=== PATIENT | female | born 1940 | race Caucasian/White ===

== ENCOUNTER → 2017-10-20 11:00 | Outpatient (CLI) | payer OTHER, SELFPAY ==
--- NOTE | 2017-10-20 | DI.MG.S_ITS ---
BILATERAL DIGITAL SCREENING MAMMOGRAM 3D/2D WITH CAD: 10/20/2017 CLINICAL: Routine screening. Comparison is made to exams dated: 10/01/2016 mammogram, 09/25/2015 mammogram, and 09/19/2014 mammogram - [facility]. The tissue of both breasts is heterogeneously dense. This may lower the sensitivity of mammography. Current study was also evaluated with a Computer Aided Detection (CAD) system. No significant masses, calcifications, or other findings are seen in either breast. There has been no significant interval change. IMPRESSION: NEGATIVE There is no mammographic evidence of malignancy. A 1 year screening mammogram is recommended. This exam was interpreted at Station ID: [id number]. NOTE: For mammograms, a report in lay terms will be sent to the patient. Approximately 15% of breast malignancies will not be visualized mammographically. In the management of a palpable breast mass, a negative mammogram must not discourage biopsy of a clinically suspicious lesion. Electronically Signed By: Darrisu black/marcus:10/20/2017 14:57:10 letter sent: Normal Exam ACR BI-RADS Category 1: Negative 3341F
== END ==
PROVIDERS: PCP Family Medicine; Visit Provider Family Medicine
DX: Z12.31 Encounter for screening mammogram for malignant neoplasm of breast (principal)
CPT/HCPCS: 77063; 77067

== ENCOUNTER 2018-01-06 09:45 | Day surgery (SDC) | payer OTHER, SELFPAY ==
[2018-01-06] MEDS: PROPARACAINE 0.5% OPHTH SOL 2 DROPS EYE-OP (10:10)
[2018-01-06] MEDS: CATARACT EYE COMPOUND (10 DROPS/SYRINGE) 3 DROPS EYE-OP (10:14)
[2018-01-06 10:23] VITALS: BP 133/86; PULSE 82; RESP 16; TEMP 36.1; O2SAT 98; BMI 29.1
--- NOTE | 2018-01-06 10:56 | P.OP_ITS ---
Operative Date/Time/Diagnoses Pre-op diagnosis: Cataract Left eye Post-op diagnosis: same Procedure & Clinicians Surgeon: Gary Wolfe Anesthesia Type: MAC +/- and Sedation Operative Notes Procedure in detail: Patient brought to the operating suite. Tetracaine drops placed in the left eye. Patient was prepped and draped in sterile manner. Wire lid speculum was placed in the eye. Betadine drops were placed on the eye. This was irrigated. Lidocaine jelly was placed on the eye. A paracentesis port was created with a side-port blade. 0.1 mL 1% preservative free lidocaine was injected into the anterior chamber. The anterior chamber was deepened with viscoelastic. 2.6 mm keratome was used to create a temporal clear corneal incision. Cystotome and Utrata forceps were used to create continuous tear capsulorrhexis. Balanced salt solution was used to hydro dissect the nucleus. The phacoemulsification handpiece was inserted and the nucleus was removed using the stop and chop technique. The irrigation aspiration handpiece was inserted and the remaining cortex was removed. Anterior chamber was deepened with viscoelastic. An Ornelas ZCB00 intraocular lens with a power of 18.5 was injected into the capsular bag. Irrigation aspiration handpiece was inserted and the remaining viscoelastic was removed. Incision was hydrated with balanced salt solution and found to be leak free with pressure with Weck- Charlotte sponges. 0.1 mL Vigamox injected anterior chamber. 0.3 mL Kenalog 10 mg was injected subconjunctivally. Lid speculum was removed. The patient left the operating room in excellent condition. Complications: none Condition: stable Disposition: same day surgery
--- NOTE | 2018-01-06 10:56 | P.OP.PRE_ITS ---
Pre-operative Note Interval Note Changes: No
--- NOTE | 2018-01-06 10:56 | PM.PREOP ---
Pre-operative Note Interval Note Changes: No
[2018-01-06] MEDS: MOXIFLOXACIN OPHTH DROPS 3 ML BOTTLE 2 DROPS INJ (11:00)
[2018-01-06] MEDS: TRIAMCINOLONE 50 MG/5 ML VIAL INJ (11:01)
[2018-01-06] MEDS: PHENYLEPHRINE/LIDOCAINE 3ML VIAL (OR) EYE-OP (11:02)
[2018-01-06] MEDS: LIDOCAINE JELLY 2% 5 ML 1 APPLIC TOP (11:02)
[2018-01-06] MEDS: BALANCED SALT IRRIG SOLN NO.2 500 ML, EPINEPHrine 1 MG IRR (11:03)
[2018-01-06] MEDS: TETRACAINE 0.5% OPHTH DROPS 15 ML 2 DROPS EYE-LEFT (11:03)
[2018-01-06] MEDS: CHONDROIDTIN/SOD HYALURONATE 1.05 ML SYRINGE INTRAOCULA (11:03)
[2018-01-06 11:20] VITALS: BP 113/75; PULSE 88; RESP 16; TEMP 36.4; O2SAT 99
== END 2018-01-06 11:20 | disposition home or self-care (01) ==
PROVIDERS: PCP Family Medicine; Visit Provider Ophthalmology
DX: H25.12 Age-related nuclear cataract, left eye (principal); I10 Essential (primary) hypertension
CPT/HCPCS: J0171; J3301

== ENCOUNTER 2018-01-20 06:45 | Day surgery (SDC) | payer OTHER, SELFPAY ==
[2018-01-20] MEDS: PROPARACAINE 0.5% OPHTH SOL 2 DROPS EYE-OP (07:05)
[2018-01-20 07:09] VITALS: BP 131/78; PULSE 81; RESP 18; TEMP 36.4; O2SAT 99; BMI 29.1
[2018-01-20] MEDS: CATARACT EYE COMPOUND (10 DROPS/SYRINGE) 3 DROPS EYE-OP (07:15)
--- NOTE | 2018-01-20 08:25 | P.OP.PRE_ITS ---
Pre-operative Note Interval Note Changes: No
--- NOTE | 2018-01-20 08:25 | P.OP_ITS ---
Operative Date/Time/Diagnoses Pre-op diagnosis: Cataract Right eye Post-op diagnosis: same Procedure & Clinicians Procedure: Cataract Surgery Same procedure as scheduled: Yes Surgeon: Gary Wolfe Anesthesia Type: MAC +/- and Sedation Operative Notes Procedure in detail: Patient brought to the operating suite. Tetracaine drops placed in the right eye. Patient was prepped and draped in sterile manner. Wire lid speculum was placed in the eye. Betadine drops were placed on the eye. This was irrigated. Lidocaine jelly was placed on the eye. A paracentesis port was created with a side-port blade. 0.1 mL 1% preservative free lidocaine was injected into the anterior chamber. The anterior chamber was deepened with viscoelastic. 2.6 mm keratome was used to create a temporal clear corneal incision. Cystotome and Utrata forceps were used to create continuous tear capsulorrhexis. Balanced salt solution was used to hydro dissect the nucleus. The phacoemulsification handpiece was inserted and the nucleus was removed using the stop and chop technique. The irrigation aspiration handpiece was inserted and the remaining cortex was removed. Anterior chamber was deepened with viscoelastic. An Ornelas ZCB00 intraocular lens with a power of 19.0 was injected into the capsular bag. Irrigation aspiration handpiece was inserted and the remaining viscoelastic was removed. Incision was hydrated with balanced salt solution and found to be leak free with pressure with Weck- Charlotte sponges. 0.1 mL Vigamox injected anterior chamber. 0.3 mL Kenalog 10 mg was injected subconjunctivally. Lid speculum was removed. The patient left the operating room in excellent condition. Complications: none Condition: stable Disposition: same day surgery
--- NOTE | 2018-01-20 08:25 | PM.PREOP ---
Pre-operative Note Interval Note Changes: No
[2018-01-20] MEDS: CHONDROIDTIN/SOD HYALURONATE 1.05 ML SYRINGE INTRAOCULA (08:30)
[2018-01-20] MEDS: LIDOCAINE JELLY 2% 5 ML 1 APPLIC TOP (08:31)
[2018-01-20] MEDS: MOXIFLOXACIN OPHTH DROPS 3 ML BOTTLE 2 DROPS INJ (08:32)
[2018-01-20] MEDS: PHENYLEPHRINE/LIDOCAINE 3ML VIAL (OR) EYE-OP (08:32)
[2018-01-20] MEDS: TETRACAINE 0.5% OPHTH DROPS 15 ML 2 DROPS EYE-RIGHT (08:32)
[2018-01-20] MEDS: TRIAMCINOLONE 50 MG/5 ML VIAL INJ (08:33)
[2018-01-20] MEDS: BALANCED SALT IRRIG SOLN NO.2 500 ML, EPINEPHrine 1 MG IRR (08:34)
--- NOTE | 2018-01-20 08:46 | SUR.OPER ---
Supine on eye stretcher, head on extension cradle secured with tape. Arms tucked at sides with blanket. Pillow under knees.
[2018-01-20 08:57] VITALS: BP 103/71; PULSE 80; RESP 16; TEMP 36; O2SAT 96
== END 2018-01-20 09:05 ==
LOC: OR 06:46
PROVIDERS: PCP Family Medicine; Visit Provider Ophthalmology
DX: H25.11 Age-related nuclear cataract, right eye (principal); I10 Essential (primary) hypertension
CPT/HCPCS: J0171; J2250; J3010; J3301

== ENCOUNTER 2018-03-31 17:13 | Emergency (ER) | payer OTHER, SELFPAY ==
[2018-03-31 17:36] VITALS: BP 157/96; PULSE 88; RESP 18; TEMP 36.5; O2SAT 97
--- NOTE | 2018-03-31 17:40 | DI.RAD.S_ITS ---
PROCEDURE: XR HAND LT MIN 3V INDICATIONS: crush injury TECHNIQUE: 3 views of the hand(s) acquired. COMPARISON: None. FINDINGS: Bones: No fractures or dislocations. Carpal bones are normally aligned. No suspicious bony lesions. Soft tissues: Soft tissue swelling and emphysema is present over the dorsum of the hand. IMPRESSION: No acute fracture or dislocation. Soft tissue swelling and emphysema as above. If pain persists, repeat imaging at 5-7 days is recommended to exclude occult fracture. Dictated by: Abby Flores M.D. on 03/31/2018 at 18:03 Approved by: Abby Flores M.D. on 03/31/2018 at 18:04
[2018-03-31 20:11] VITALS: BP 170/93; PULSE 84; RESP 18; O2SAT 97
[2018-03-31] MEDS: TET,DIPH,PERTUSS(ACELL),VAC/PF 0.5 ML SYRINGE IM (20:33)
[2018-03-31 21:30] VITALS: BP 156/77; PULSE 58; RESP 20; O2SAT 99
[2018-03-31 22:28] VITALS: BP 147/91; PULSE 73; RESP 14; O2SAT 100
--- NOTE | 2018-03-31 22:43 | ED_ITS ---
HPI - Extremity Injury (Upper) General Chief Complaint: Extremity Injury, Upper Stated Complaint: SMASHED LEFT HAND BETWEEN TRAILER AND A WALL Time Seen by Provider: 03/31/18 20:21 Source: patient Mode of arrival: ambulatory Limitations: no limitations History of Present Illness HPI narrative: patient is a 77-year-old female who presents with a left hand injury. She put her hand between a hitch and a wall it got crushed. She has no numbness or tingling in her fingers. She has a laceration over her MCPs on the dorsal side. She is able to flex extend move all of her fingers and wrist. She is left-hand dominant. MD complaint: injury to: left Related Data Home Medications Medication Instructions Recorded Confirmed vitamin E 1,000 unit PO DAILY #0 01/18/16 01/20/18 acyclovir [Zovirax] 5 tube TOPICAL Q6HP PRN 01/06/18 01/20/18 clobetasol 0.05 % TOPICAL QDAY PRN 01/06/18 01/20/18 triamcinolone acetonide 1 ea TOPICAL BID PRN 01/06/18 01/20/18 aspirin [Aspirin Low Dose] 81 mg PO DAILY 01/20/18 01/20/18 Previous Rx's Medication Instructions Recorded atorvastatin [Lipitor] 10 mg PO HS #90 tab 04/25/17 levothyroxine 100 mcg PO QAM #90 tab 04/25/17 lisinopril 10 mg PO QDAY #90 tab 04/25/17 alprazolam 0.25 mg tablet 0 mg PO Q12HP #6 tab 10/30/17 Allergies Allergy/AdvReac Type Severity Reaction Status Date / Time Sulfa (Sulfonamide Allergy Mild Verified 01/20/18 07:28 Antibiotics) [SULFA (SULFONAMIDE ANTIBIOTICS)] Review of Systems Review of Systems GENERAL: Denies chills,fever HEENT: Denies throat pain RESPIRATORY: Denies dyspnea, cough, wheezing CARDIOVASCULAR: Denies chest pain, palpitations GASTROINTESTINAL: Denies nausea, vomiting MUSCULOSKELETAL: Denies extremity pain, injury SKIN: Laceration NEUROLOGIC: Denies weakness, dizziness, headache, numbness 8 point review of systems is negative except for those stated above and HPI PFSH Surgical History History of carpal tunnel repair History of carpal tunnel repair Status post appendectomy Status post arthroscopy Status post cholecystectomy Status post colonoscopy Status post hernia repair Status post hysterectomy Family History Father Bladder cancer Stroke Sister Age: 65 Diabetes mellitus Social History household members: spouse Comment: Left hand dominant Exam Initial Vital Signs Initial Vital Signs: Vital Signs Temperature 97.7 F 03/31/18 17:36 Pulse Rate 88 03/31/18 17:36 Respiratory Rate 18 03/31/18 17:36 Blood Pressure 157/96 H 03/31/18 17:36 Pulse Oximetry 97 03/31/18 17:36 GENERAL: Well-appearing, well-nourished and in no acute distress. CARDIOVASCULAR: peripheral pulses in tact, cap refill <2 sec RESPIRATORY: No respiratory distress, speaks in full sentences without difficulty EXTREMITIES: Normal range of motion, no clubbing or edema. Neurovascularly intact left hand: no gross bony deformities, able flex extend all fingers good abduction and adduction. Wrist is good flexion extension neurovascularly intact NEUROLOGICAL: Cranial nerves II through XII grossly intact. Normal gait and speech. SKIN: 6 cm laceration over the dorsal MCP, neurovascularly intact Skin Hand Left Back: 2 1. 6 cm tendons intact neurovascularly intact. Large hematoma Procedures Laceration Repair Laceration 1: Site: hand Side (If applicable): left Size (cm): 6 Description: linear Depth: simple, single layer Local Anesthetic: lidocaine 1% Amount of anesthesia used (mL): 4 Pre-repair: wound explored, irrigated extensively and deep structures intact Skin layer closed with: nylon Size (cm): 4-0 Number of sutures: 6 Technique: simple, interrupted Course Orders Ordered: Discontinued Medications Diphtheria/Tetanus/Acell Pertussis (Adacel) 0.5 ml IM .ONCE ONE Stop: 03/31/18 20:07 Last Admin: 03/31/18 20:33 Dose: 0.5 ml Vital Signs - 8 hr 03/31/18 21:30 03/31/18 22:28 Pulse Rate 58 L 73 Respiratory Rate 20 14 Blood Pressure [Right Arm] 156/77 H 147/91 H Pulse Oximetry 99 100 MDM - Extremity Injury (Upper) Imaging Data hand: Radiologist's impression: [address] [address] XRay Report Signed Patient: Veronica Blevins MR#: [id number] : 1940 Acct:[id number] Age/Sex: 77 / F Date of Service: 03/31/18 Loc: ED Accession Number: [id number] Procedure: XR hand LT min 3V Ordering Provider: Lai Lo D.O. PROCEDURE: XR HAND LT MIN 3V INDICATIONS: crush injury TECHNIQUE: 3 views of the hand(s) acquired. COMPARISON: None. FINDINGS: Bones: No fractures or dislocations. Carpal bones are normally aligned. No suspicious bony lesions. Soft tissues: Soft tissue swelling and emphysema is present over the dorsum of the hand. IMPRESSION: No acute fracture or dislocation. Soft tissue swelling and emphysema as above. If pain persists, repeat imaging at 5-7 days is recommended to exclude occult fracture. Dictated by: Abby Flores M.D. on 03/31/2018 at 18:03 Discharge Plan Departure Patient Disposition: Home Clinical Impression: Laceration of hand, left Discharge Date/Time: 03/31/18 22:51 Interventions: ED Discharge Assessment Last Done: 03/31/18 22:51 Instructions: DI for Laceration Repair Activity Restrictions/Additional Instructions: 1. Have your suture removed in 5-7 days, you may go to walk-in clinic, return to the ER or call your primary care physician. 2. No soaking in water including dishes, bathtubs, Lakes, swimming pools etc 3. Signs of infection include, but not limited to, increased redness, increased swelling, increased pain, fever and purulent drainage, if the symptoms should arise, you may need an antibiotic and you should have a reevaluation either by your primary care provider or by the emergency department. Prescriptions: No Action vitamin E 1,000 UNIT capsule 1,000 unit PO DAILY Qty: 0 RF: 0 lisinopril 10 MG tablet 10 mg PO QDAY Qty: 90 RF: 3 atorvastatin [Lipitor] 10 MG tablet 10 mg PO HS Qty: 90 RF: 3 levothyroxine 100 MCG tablet 100 mcg PO QAM Qty: 90 RF: 3 alprazolam 0.25 mg tablet PO Q12HP Qty: 6 RF: 1 triamcinolone acetonide 0.1 % cream 1 ea Topical BID PRN (Reason: Rash) RF: 0 clobetasol 0.05 % solution 0.05 % Topical QDAY PRN (Reason: Itching) RF: 0 acyclovir [Zovirax] 5 GM cream 5 tube Topical Q6HP PRN (Reason: Rash) RF: 0 aspirin [Aspirin Low Dose] 81 mg Tablet,Delayed Release (Dr/Ec) 81 mg PO DAILY RF: 0 Referrals: Pedro Billingsley MD [Primary Care Provider] -
== END 2018-03-31 22:51 | disposition home or self-care (01) ==
PROVIDERS: Emergency Provider Emergency Medicine; PCP Family Medicine
DX: S61.412A Laceration without foreign body of left hand, initial encounter (principal); W23.0XXA Caught, crushed, jammed, or pinched between moving objects, initial encounter
CPT/HCPCS: 12002; 73130; 90471; 99283; 90715

== ENCOUNTER → 2018-04-14 07:48 | Outpatient (CLI) | payer OTHER, SELFPAY ==
[2018-04-14 08:42] LABS: Add Manual Diff / Slide Review NO; Basophils Percent Auto 0.8 % (0-2); Eosinophils Percent Auto 4.8 % (2-4); Hematocrit 44.5 % (36-46); Hemoglobin 15.2 g/dL (12.0-16.0); Lymphocytes Percent Auto 26.7 % (25-40); Mean Corpuscular HGB Conc 34.3 % (30-36); Mean Corpuscular Hemoglobin 32.1 PG (26-34); Mean Corpuscular Volume 93.7 fL (80-100); Monocytes Percent Auto 9.6 % (3-14); Neutrophils Absolute Auto 3600 /uL (3000-5900); Neutrophils Percent Auto 58.1 % (50-75); Platelet Count 205 X10^3/uL (150-400); Red Blood Cell Count 4.75 X10^6/uL (4.0-5.2); Red Cell Distribution Width 12.2 % (11.6-14.8); White Blood Cell Count 6.2 X10^3/uL (4.5-11.0)
[2018-04-14 09:06] LABS: Alanine Aminotransferase 43 IU/L (9-52); Albumin 4.2 g/dL (3.5-5.0); Albumin Globulin Ratio 1.4 (1.0-2.8); Alkaline Phosphatase 77 U/L (38-126); Aspartate Aminotransferase 37 IU/L (14-36); BUN Creatinine Ratio 21.4 (6-22); Bilirubin Total 1.5 mg/dL (0.2-1.3); Blood Urea Nitrogen 15 mg/dL (7-17); Carbon Dioxide 28 mmol/L (22-32); Chloride 104 mmol/L (98-107); Cholesterol 146 mg/dL (140-199); Estimated Glomerular Filt Rate > 60.0 mL/min (>60); Globulin 3.1 g/dL (1.7-4.1); Glucose 133 mg/dL (80-110); HDL Cholesterol 61 mg/dL (40-60); HEMOLYSIS < 15 (0-50); LDL Cholesterol Calculated 61 mg/dL (<100); Sodium 142 mmol/L (137-145); Total Protein 7.3 g/dL (6.3-8.2); Triglycerides 118 mg/dL (35-150)
[2018-04-14 09:38] LABS: Thyroid Stimulating Hormone 4.43 uIU/mL (0.47-4.68)
== END ==
PROVIDERS: PCP Family Medicine; Visit Provider Family Medicine
DX: E03.9 Hypothyroidism, unspecified (principal); E78.2 Mixed hyperlipidemia
CPT/HCPCS: 36415; 80053; 80061; 84443; 85025

== ENCOUNTER 2018-06-04 12:22 | Day surgery (SDC) | payer OTHER, SELFPAY ==
[2018-06-04] VITALS (7 sets, daily range): BP systolic 109–134; BP diastolic 62–85; PULSE 82–102; RESP 14–20; TEMP 36.2–36.8; O2SAT 96–97; BMI 28.1
--- NOTE | 2018-06-04 | PATH_ITS ---
[facility] Accession Number: [id number] . 01 Material submitted: . PART A: CECAL POLYP PART B: SIGMOID COLON AT 15CM . 02 Diagnosis: A. Cecal Polyp: Tubulovillous adenoma, fragmented. Negative for high-grade dysplasia or malignancy. . B. Sigmoid Colon at 15 cm: Tubular adenoma x1. Hyperplastic polyp x1. MRV/06/08/2018 . 02 Comment: As part of routine personnel quality assurance auditor, Dr. Jackson has reviewed this case and agrees with the above diagnoses. . 02 Electronically signed: . Anupam Jose MD, PhD, Pathologist NPI- [id number] . 01 Gross description: . Received two formalin-filled containers, both labeled with the patient's name: . A. In a container labeled cecal polyp, the specimen consists of three 0.1-0.3 cm portions of tissue, entirely submitted in cassette A. B. In a container labeled sigmoid polyp at 15 cm, the specimen consists of two 0.3-0.4 cm portions of tissue, entirely submitted in cassette B. ([id number]) /FRR . 02 Pathologist provided ICD-10: D12.0, D12.5 . 02 CPT . 158364, 274070 Performed at: 01 [facility] Located within [facility] [address], [place], [place] [id number] MD Darrius Alicea MD Phone: [phone] Performed at: [address] [facility] [address] [place], [place] [id number] MD Netta Jackson MD Phone: [phone]
[2018-06-04] MEDS: SODIUM CHLORIDE 0.9% 1,000 ML 21 ML IV (13:06)
[2018-06-04] MEDS: MIDAZOLAM 5 MG/5 ML VIAL IV (13:17)
[2018-06-04] MEDS: fentaNYL 250 MCG/5 ML INJ IV (13:18)
--- NOTE | 2018-06-04 13:25 | P.HP_ITS ---
History of Present Illness Date Patient Seen: 06/04/18 Time Patient Seen: 13:23 Chief complaint: [id number] Narrative: 77-year-old female with personal history of colon polyps. Last colonoscopy was 5 years ago. She presents now for surveillance. On further history today she denies any nausea, vomiting, loss of appetite, abdominal pain , unexplained weight loss, change in bowel habits, diarrhea, constipation, melena, hematochezia, or bright red blood per rectum. Patient History Medical History Acne (Chronic) Hearing loss (Chronic) Psoriasis (Chronic) Tinnitus (Chronic) Vertigo (Chronic) Basal cell carcinoma (BCC) of right side of neck (Resolved 06/22/14) CTS (carpal tunnel syndrome) (Resolved) Chicken pox (Resolved) Colon polyps (Resolved 2011) Endometriosis (Resolved) History of heavy periods (Resolved) Kidney stones (Resolved) Measles (Resolved) Mumps (Resolved) Surgical History Anesthesia (Resolved) History of basal cell carcinoma (BCC) excision (Resolved 06/22/14) History of biopsy (Resolved 1972) History of carpal tunnel repair (Resolved 2008) History of carpal tunnel repair (Resolved 10/07/12) History of colonoscopy with polypectomy (Resolved 02/17/12) History of colonoscopy with polypectomy (Resolved 08/10/12) History of colonoscopy with polypectomy (Resolved 02/27/15) History of left cataract surgery (Resolved 01/06/18) History of right cataract surgery (Resolved 01/20/18) History of tonsillectomy and adenoidectomy (Resolved 1955) Status post Mohs micrographic surgery for basal cell carcinoma (BCC) (Resolved 07/05/14) Status post appendectomy (Resolved) Status post arthroscopy (Resolved 06/29/08) Status post cholecystectomy (Resolved) Status post hernia repair (Resolved 04/16/05) Status post hysterectomy (Resolved 1972) Family & Social History Social History: household members spouse Meds Home Medications Medication Instructions Recorded Confirmed Type lisinopril 10 mg PO QDAY #90 tab 04/25/17 06/04/18 Rx acyclovir [Zovirax] 5 tube TOPICAL Q6HP PRN 01/06/18 06/04/18 History clobetasol 0.05 % TOPICAL QDAY PRN 01/06/18 06/04/18 History triamcinolone acetonide 1 ea TOPICAL BID PRN 01/06/18 06/04/18 History aspirin [Aspirin Low Dose] 81 mg PO DAILY 01/20/18 06/04/18 History atorvastatin [Lipitor] 10 mg PO HS #90 tab 04/08/18 06/04/18 Rx levothyroxine 100 mcg PO QAM #90 tab 05/20/18 06/04/18 Rx alprazolam 0.25 mg PO Q12HP 06/04/18 06/04/18 History omega 3-eve-kgp-fish oil [Fish Oil] 1,000 mg PO DAILY 06/04/18 06/04/18 History Allergies Allergy/AdvReac Type Severity Reaction Status Date / Time Sulfa (Sulfonamide Allergy Mild childhood Verified 06/04/18 12:41 Antibiotics) rxn [SULFA (SULFONAMIDE ANTIBIOTICS)] Review of Systems Review of Systems All systems reviewed & are unremarkable except as noted in HPI and below Exam Vital Signs (past 8 hours): - 06/04/18 13:05 Temperature 98.2 F Pulse Rate 102 H Respiratory Rate 20 Blood Pressure 134/85 Pulse Oximetry 96 Oxygen Delivery Method Room Air Narrative Exam Narrative: Well-nourished well-developed female in no acute distress. Alert oriented x3. is at the bedside from my visit Sclera nonicteric Regular rate rhythm Abdomen soft, nondistended, nontender Extremities show no clubbing or cyanosis Objective Labs Labs: No recent laboratory or radiographic studies for review Assessment & Plan Plan: Assessment/Plan Narrative: 77-year-old female with personal history of colon polyps. Last colonoscopy was 5 years ago. She require surveillance for such. Colonoscopy is once again recommended. Technical details of the procedure were explained. Risks, benefits, alternatives were discussed. Risks including but not limited to sedation, aspiration, bleeding, pain, missed lesion, incomplete examination, need for further radiographic studies, colonic perforation, need for major abdominal surgery, and all attendant risks of major surgery were explained at length. All questions were answered to her satisfaction, and she voiced understanding. Consent was placed on the chart. We will proceed as above.
--- NOTE | 2018-06-04 13:25 | PM.PREOP ---
Pre-operative Note Interval Note History & Physical reviewed/Exam performed by Physician: Yes Changes to H&P: No H&P completed within 30 days and has changed as indicated here:: Patient seen and examined today. History and physical examination placed on the chart today. Obviously no changes. Proceed with colonoscopy today as planned. ASA Class (for procedural sedation): II
--- NOTE | 2018-06-04 13:55 | PM.OP.ENDO ---
Operative Date/Time/Diagnoses Date of procedure: 06/04/18 Time of procedure: 13:55 Pre-op diagnosis: Personal history of colon polyps Post-op diagnosis: other (Diverticulosis and colon polyps) Procedure & Clinicians Study performed: 1. Sedation per surgeon 2. Colonoscopy with cold forceps polypectomies Same procedure as scheduled: Yes Indications: 77-year-old female with personal history of colon polyps. Last colonoscopy was 5 years ago. She requires colorectal surveillance for such. Colonoscopy is once again recommended. Surgeon: Sunny Garland Procedure Notes SCOAP/Timeout: Yes Procedure in detail: After obtaining informed consent, the patient was brought to the GI suite and placed in the left lateral decubitus position on the examination table. After placement of appropriate monitors, the patient was given incremental doses of Versed and Fentanyl until an appropriate level of sedation was achieved. A time out was held per SCOAP protocol. A digital rectal examination was performed and did not reveal any masses or obstructing lesions. The colonoscope was gently passed into the patient's anus and the entire colon navigated to the level of the cecum with some difficulty due to her extensive tortuosity and massive diverticulosis. Monse ink tattoo was noted in the cecum and a small polyp was adjacent to the area. Once in the cecum, the scope was withdrawn being sure to go before and beyond all mucosal folds and prominences and get an excellent examination. The findings are noted above. At the level of the rectal vault, the scope was retroflexed and the internal anal canal was examined. The scope was straightened and air aspirated from the colon. The instrument was removed from the patient's body and the procedure was concluded. The patient was allowed to awaken from sedation without difficulty and taken to the post-anesthesia care unit in good condition. Scope withdrawal time: 8:36 min Sedation minutes: 26 Findings: diverticulosis and polyp Specimen(s): other (1. Cecal polyp 2. Sigmoid polyp at 15 cm) Complications: none Recommendations: High fiber diet, Will call with biopsy results and Other recommendation (No further colonoscopy pending biopsy results.) Plan for aftercare: 1. Discharge home Follow up: as needed Disposition: PACU
== END 2018-06-04 14:51 | disposition home or self-care (01) ==
PROVIDERS: PCP Family Medicine; Visit Provider Surgery
PROC: 0DJD8ZZ Inspection of Lower Intestinal Tract, Via Natural or Artificial Opening Endoscopic (ICD-10-PCS; CPT 45378; principal; 2018-06-04 14:00)
DX: Z86.010 Personal history of colon polyps (principal); K57.30 Diverticulosis of large intestine without perforation or abscess without bleeding; D12.0 Benign neoplasm of cecum; D12.5 Benign neoplasm of sigmoid colon
CPT/HCPCS: 45380; 99152; 99153; J2250; J3010

== ENCOUNTER → 2018-10-28 15:21 | Outpatient (CLI) | payer OTHER, SELFPAY ==
--- NOTE | 2018-10-28 | DI.MG.S_ITS ---
BILATERAL DIGITAL SCREENING MAMMOGRAM 3D/2D WITH CAD: 10/28/2018 CLINICAL: Routine screening. Comparison is made to exams dated: 10/20/2017 mammogram, 10/01/2016 mammogram, and 09/25/2015 mammogram - [facility]. There are scattered fibroglandular elements in both breasts. Current study was also evaluated with a Computer Aided Detection (CAD) system. No significant masses, calcifications, or other findings are seen in either breast. There has been no significant interval change. IMPRESSION: NEGATIVE There is no mammographic evidence of malignancy. A 1 year screening mammogram is recommended. This exam was interpreted at Station ID: [id number]. NOTE: For mammograms, a report in lay terms will be sent to the patient. Approximately 15% of breast malignancies will not be visualized mammographically. In the management of a palpable breast mass, a negative mammogram must not discourage biopsy of a clinically suspicious lesion. Electronically Signed By: Sourav mars/marcus:10/29/2018 09:38:48 letter sent: Normal Exam ACR BI-RADS Category 1: Negative 3341F
== END ==
PROVIDERS: PCP Family Medicine; Visit Provider Family Medicine
DX: Z12.31 Encounter for screening mammogram for malignant neoplasm of breast (principal)
CPT/HCPCS: 77063; 77067

== ENCOUNTER → 2018-12-28 08:20 | Outpatient (CLI) | payer OTHER, SELFPAY ==
[2018-12-28 09:40] LABS: Carbon Dioxide 29 mmol/L (22-32); Chloride 101 mmol/L (98-107); HEMOLYSIS 22 (0-50); Potassium 4.8 mmol/L (3.4-5.1); Sodium 136 mmol/L (137-145)
[2018-12-28 09:41] LABS: Add Manual Diff / Slide Review NO; Basophils Absolute Auto 0 /uL (0-100); Basophils Percent Auto 0.8 % (0-2); Eosinophils Absolute Auto 200 /uL (0-450); Eosinophils Percent Auto 2.8 % (2-4); Hematocrit 44.8 % (36-46); Hemoglobin 15.3 g/dL (12.0-16.0); Lymphocytes Absolute Auto 1500 /uL (1100-4500); Lymphocytes Percent Auto 24.2 % (25-40); Mean Corpuscular HGB Conc 34.1 % (30-36); Mean Corpuscular Hemoglobin 32.1 PG (26-34); Mean Corpuscular Volume 94.3 fL (80-100); Monocytes Absolute Auto 700 /uL (0-900); Neutrophils Absolute Auto 3800 /uL (1500-7000); Neutrophils Percent Auto 61.2 % (50-75); Platelet Count 186 X10^3/uL (150-400); Red Blood Cell Count 4.76 X10^6/uL (4.0-5.2); Red Cell Distribution Width 12.5 % (11.6-14.8); White Blood Cell Count 6.1 X10^3/uL (4.5-11.0)
== END ==
PROVIDERS: PCP Family Medicine; Visit Provider Orthopaedic Surgery
DX: Z01.818 Encounter for other preprocedural examination (principal); Z01.812 Encounter for preprocedural laboratory examination
CPT/HCPCS: 36415; 80051; 85025; 93005

== ENCOUNTER 2019-02-03 12:35 | Inpatient (IN) | payer OTHER, MEDICARE, SELFPAY ==
[2019-01-20 07:45] VITALS: BMI 29.7
[2019-02-03] VITALS (12 sets, daily range): BP systolic 90–156; BP diastolic 50–80; PULSE 71–88; RESP 14–20; TEMP 35.9–37; O2SAT 94–98; BMI 29.7
--- NOTE | 2019-02-03 06:00 | DI.RAD.S_ITS ---
PROCEDURE: XR KNEE RT 1TO2V INDICATIONS: TOTAL RIGHT KNEE TECHNIQUE: 2 view(s) of the knee acquired. COMPARISON: [facility] [place], CR, XR KNEE ARTHRITIC SERIES RT, 12/28/2018, 7:45. FINDINGS: Bones: Patient is status post interval right knee joint arthroplasty. Hardware components are in expected positions. Visualized bony structures are intact. Soft tissues: Overlying postoperative changes are noted. IMPRESSION: Status post interval right total knee arthroplasty without acute hardware complication. Expected postsurgical changes are present. Dictated by: Sourav Iverson M.D. on 02/03/2019 at 16:48 Approved by: Sourav Iverson M.D. on 02/03/2019 at 16:49
--- NOTE | 2019-02-03 12:51 | PM.PREOP ---
Pre-operative Note Interval Note History & Physical reviewed/Exam performed by Physician: Yes Changes to H&P: No
--- NOTE | 2019-02-03 12:52 | P.OP_ITS ---
Operative Date/Time/Diagnoses Date of procedure: 02/03/19 Time of procedure: 16:17 Pre-op diagnosis: Right knee osteoarthritis Post-op diagnosis: same Procedure & Clinicians Procedure: Right total knee arthroplasty Same procedure as scheduled: Yes Indications: The patient presents today for total knee arthroplasty after failure of conservative treatment. The nature of the procedure including the risks and benefits, alternatives, postoperative course and expected outcome were discussed and all questions answered. Consent was obtained. Operative site confirmed and marked. Surgeon: Darrius Olmstead [employer] Supervisor: Priyank Lea Anesthesia Type: General, Spinal and Local Operative Notes Findings: Severe osteoarthritis with valgus alignment. Closure Type: primary Specimen(s): none sent Prosthetic devices, grafts, tissues, transplants, or devices: [employer]hew Natalio BCS: 7 femoral component, 6 tibial component, 9 mm BCS polyethylene tray and 32 x 9 mm round patella Applied: implant(s) Estimated Blood Loss (mL): 10 Blood products transfused: none Tourniquet time (min): 60 Procedure in detail: The patient was taken to the operative suite and placed under general and spinal anesthesia. The patient was given prophylactic antibiotics prior to surgery. The patient was also given tranexamic acid, 1 g, just prior to surgery for postoperative hemostasis. The lateral knee was prepped and the joint injected with 20 mL of 1% Lidocaine with epinephrine. The knee was then prepped and draped in usual sterile fashion. The leg was exsanguinated with an Esmarch dressing and the tourniquet raised to 250 torr. A 15 cm anterior incision was made. Next a medial trivector arthrotomy was made. The extensor mechanism was marked to ensure accurate repair. Initial exposing dissection was carried out medially and laterally. The knee was then extended and the patellar thickness was measured and a cut made removing approximately 9 mm of bone. The patella was then sized and drilled. Some excess lateral bone was excised and the patellofemoral ligament released. The knee was then flexed and the intramedullary femoral guide polly placed. The distal femoral cut was made in 6 ? of valgus at the + 0 position. The femoral size was measured and the appropriate cutting block was then placed and the anterior, posterior and chamfer cuts made. The extra medullary tibial alignment polly was then placed along the anatomic axis of the tibia approximating the normal slope. The guide was set to remove approximately 8 mm from the less affected medial side. The proximal tibial cut was then made with an oscillating saw. All meniscus and bony debris was then removed. Flexion extension gaps were checked. The knee was tight laterally in extension as expected from her deformity. This was corrected by releasing the lateral structures using a pie crust technique with a 15 blade. The soft tissues were then injected with a combination of 20 mL of half percent Marcaine with epinephrine and 20 mL of Exparel. The trial components were then placed. The knee went into full extension and flexion beyond 120?. There was excellent medial- lateral balance throughout motion. Patellar tracking was excellent. The trial components were removed and the knee was cleansed with Pulsavac irrigation and dried. The final components were cemented in with high viscosity vacuum mixed bone cement with antibiotics. The knee was held in extension and the patellar clamp until the cement had adequately cured. The knee was irrigated and inspected for any further debris. The knee was then irrigated with dilute Betadine solution. The extensor mechanism was closed with 5 interrupted #1 Vicryl sutures in 90 degrees of flexion. The joint was then injected with a combination of 1 g of tranexamic acid and 20 mL of quarter percent Marcaine with epinephrine. The subcutaneous tissue was closed with 2-0 Vicryl. The skin was closed with dalton and surgical adhesive. An Aquacell dressing and Lance wrap were then applied. The patient tolerated the procedure well and was returned to recovery room in good condition. Post-operative Condition: stable Disposition: PACU Plan for aftercare: [facility] protocol for total knee arthroplasty.
[2019-02-03] MEDS: LACTATED RINGERS 1,000 ML 42 ML IV ×2 (13:15→15:50)
[2019-02-03] MEDS: MIDAZOLAM 2 MG/2 ML VIAL IV (14:11)
[2019-02-03] MEDS: CEFAZOLIN 2 GM/100 ML FROZ.PIGGY IV ×2 (14:25→22:10)
[2019-02-03] MEDS: LIDOCAINE 1% W/EPI 20 ML INJ (14:56)
--- NOTE | 2019-02-03 15:06 | SUR.OPER ---
Supine on padded OR bed. Pillow under head, arms secured on padded armboards <90 degree abduction. Safety belt across torso. Non-operative leg secured with tape over blanket over lower leg. Operative leg secured in dontrell boot positioner
[2019-02-03] MEDS: BUPIVACAINE 0.25% W/ EPI (PF) 20 ML, TRANEXAMIC ACID 1,000 MG, SODIUM CHLORIDE 0.9% 10 ML INJ (15:23)
[2019-02-03] MEDS: BUPIVACAINE 0.5% W/ EPI (PF) 20 ML, BUPIVACAINE LIPOSOME 266 MG, SODIUM CHLORIDE 0.9% 2... INJ (15:25)
[2019-02-03] MEDS: SODIUM CHLORIDE IRRIG SOLUTION 250 ML, POVIDONE-IODINE SPONGE STICKS 1 APPLIC IRR (15:30)
[2019-02-03] MEDS: LACTATED RINGERS 1,000 ML 125 ML IV (17:53)
[2019-02-03] MEDS: ACETAMINOPHEN 325 MG TABLET 975 MG PO (20:32)
[2019-02-03] MEDS: ASPIRIN EC 81 MG TABLET PO (20:32)
[2019-02-03] MEDS: OXYCODONE IR 5 MG TABLET 10 MG PO (22:39)
[2019-02-03] MEDS: MELATONIN 3 MG TABLET 6 MG PO (22:39)
[2019-02-04 00:20] VITALS: BP 146/81; PULSE 74; RESP 18; TEMP 36.6; O2SAT 98
--- NOTE | 2019-02-04 02:09 | PC.NURSE ---
[employer] Safety Engineer Note: 0045: Awake, vital signs stable. IV in place in rt forearm with LR infusing at 125cc/hr. SCDs on. Dressing to rt knee cdi, with rebekah wrap over dressing. Pt states her pain level is 1/10 and declines any medication at this time.
[2019-02-04] MEDS: LACTATED RINGERS 1,000 ML 125 ML IV (03:16)
[2019-02-04 04:15] VITALS: BP 129/73; PULSE 71; RESP 18; TEMP 36.7; O2SAT 96
[2019-02-04] MEDS: CEFAZOLIN 2 GM/100 ML FROZ.PIGGY IV (05:48)
[2019-02-04] MEDS: LEVOTHYROXINE 100 MCG TABLET PO (05:48)
[2019-02-04 07:04] LABS: Hematocrit 39.3 % (36-46); Hemoglobin 13.3 g/dL (12.0-16.0)
--- NOTE | 2019-02-04 08:48 | P.DS_ITS ---
History of Present Illness History of Present Illness Date Patient Seen: 02/04/19 Time Patient Seen: 08:48 Chief complaint: Total Knee Arthroplasty Narrative: Patient states she is having no pain at rest mild pain with activity. She has been up to use the restroom. Denies fever chills. No nausea vomiting. Patient has a ramp into her house. Patient's and daughter home to assist her. Discharge Providers Provider Date of admission: 02/03/19 12:35 Discharge Date: 02/04/19 Primary care physician: Pedro Billingsley MD Consults: 02/03/19 17:04 Consult to Discharge Planning Routine Comment: Consult to Physical Therapy Evaluate & Treat Comment: Physician Instructions: postop TKA protocol Consult to Respiratory Therapy Evaluate & Treat Comment: Physician Instructions: Evaluate and treat Discharge provider: Priyank Lea PA-C Summary Hospital Course Discharge Diagnosis: Status post right total knee arthroplasty secondary to right knee OA Hospital Course: Findings: Severe osteoarthritis with valgus alignment. Closure Type: primary Specimen(s): none sent Prosthetic devices, grafts, tissues, transplants, or devices: [employer]hew Natalio BCS: 7 femoral component, 6 tibial component, 9 mm BCS polyethylene tray and 32 x 9 mm round patella Applied: implant(s) Estimated Blood Loss (mL): 10 Blood products transfused: none Tourniquet time (min): 60 Patient admitted to the hospital for right total knee arthroplasty. Consented to the same. Patient taken to the operating room underwent right total knee ar throplasty. Patient back in her room recovering well as in stable condition. Patient wishes to go home if safe to do so today. Status at Discharge Cognitive/behavioral status at discharge: at baseline, oriented Functional status at discharge: uses cane/walker Overall status at discharge: patient is progressing back to baseline Time Spent with Patient Time spent: Less than 30 minutes Exam Vital Signs (past 8 hours): - 02/04/19 04:15 Temperature 98.0 F Pulse Rate 71 Respiratory Rate 18 Blood Pressure 129/73 Pulse Oximetry 96 Oxygen Delivery Method Room Air Narrative Exam Narrative: Pleasant 78-year-old female resting comfortably in bed in no apparent distress. Right knee dressing is clean, dry and intact. Sensation is intact to light touch right lower extremity. Motor functions intact right lower extremity. Right leg is warm and dry. Objective Labs Result Diagrams: 02/04/19 06:30 Labs: Laboratory Results - last 24 hr 02/04/19 06:30 Hgb 13.3 Hct 39.3 Discharge Plan Discharge Plan Patient Disposition: Home Discharge comment: DC home today after PT Discharge Med Rec/Prescriptions Prescriptions: Continued atorvastatin [Lipitor] 10 mg tablet 10 mg PO HS Qty: 90 RF: 3 levothyroxine 100 mcg tablet 100 mcg PO QAM Qty: 90 RF: 3 lisinopril 10 mg tablet 10 mg PO QDAY Qty: 90 RF: 3 clobetasol 0.05 % solution 0.05 % Topical QDAY PRN (Reason: Itching) Qty: 50 RF: 6 omega 3-dvs-vld-fish oil [Fish Oil] 1,000 mg (120 mg-180 mg) Capsule 1,000 mg PO DAILY RF: 0 melatonin 5 mg Capsule 5 mg PO BEDTIME PRN (Reason: Sleep) RF: 0 triamcinolone acetonide 0.1 % cream 1 ea Topical BID PRN (Reason: Rash) RF: 0 Discontinued ibuprofen 200 mg Tablet 200 mg PO DAILY PRN (Reason: Pain) RF: 0 aspirin [Aspirin Low Dose] 81 mg Tablet,Delayed Release (Dr/Ec) 81 mg PO DAILY RF: 0 Follow up/Referrals: Pedro Billingsley MD [Primary Care Provider] - Darrius Olmstead MD [Physician] - (1 wk) Provider Discharge Instructions Diet: Diet as Tolerated Activity: WBAT, per [facility] Cold/Heat Therapy: per [facility] Other treatments: Aspirin 81 mg b.i.d., ibuprofen 400 mg every 4 hours, Tylenol 500 mg every 4 hours. Oxycodone as needed pain. Skin/Wound/Dressing Care Report to your healthcare provider any signs of infection, such as:: chills, fever, increased pain, unusual drainage and unusual redness Dressing: Keep clean and dry Discharge Data Primary Care Provider: Pedro Billingsley Quality VTE Deep Vein Thrombosis/Pulmonary Embolism Present on Admission: No
[2019-02-04] MEDS: LISINOPRIL 10 MG TABLET PO (08:54)
[2019-02-04] MEDS: MELOXICAM 7.5 MG TABLET 15 MG PO (08:54)
[2019-02-04] MEDS: ASPIRIN EC 81 MG TABLET PO (08:54)
[2019-02-04] MEDS: ACETAMINOPHEN 325 MG TABLET 975 MG PO (08:54)
[2019-02-04 09:00] VITALS: BP 139/69; PULSE 84; RESP 18; TEMP 36.4; O2SAT 96
--- NOTE | 2019-02-04 09:11 | PT.IIE ---
Current Diagnoses Unilateral primary osteoarthritis, right knee (02/03/19) Surgery Performed Operation Date: 02/03/19 14:45 Actual Procedures p Total Knee Arthroplasty(Right) - Darrius Olmstead MD Surgical History (Last Reviewed 06/04/18 @ 13:23 by Sunny Garland MD) Anesthesia (Resolved) History of basal cell carcinoma (BCC) excision (Resolved 06/22/14) History of biopsy (Resolved 1972) History of carpal tunnel repair (Resolved 2008) History of carpal tunnel repair (Resolved 10/07/12) History of colonoscopy with polypectomy (Resolved 02/17/12) History of colonoscopy with polypectomy (Resolved 08/10/12) History of colonoscopy with polypectomy (Resolved 02/27/15) History of left cataract surgery (Resolved 01/06/18) History of right cataract surgery (Resolved 01/20/18) History of tonsillectomy and adenoidectomy (Resolved 1955) Status post appendectomy (Resolved) Status post arthroscopy (Resolved 06/29/08) Status post cholecystectomy (Resolved) Status post hernia repair (Resolved 04/16/05) Status post hysterectomy (Resolved 1972) Status post Mohs micrographic surgery for basal cell carcinoma (BCC) (Resolved 07/05/14) Medical History (Last Updated 01/20/19 @ 07:47 by Alessandra Lott RN) Acne (Chronic) Basal cell carcinoma (BCC) of right side of neck (Resolved 06/22/14) Chicken pox (Resolved) Colon polyps (Resolved 2011) CTS (carpal tunnel syndrome) (Resolved) Endometriosis (Resolved) Hearing loss (Chronic) History of heavy periods (Resolved) HLD (hyperlipidemia) (Acute) HTN (hypertension) (Acute) Hypothyroidism (Acute) Kidney stones (Resolved) Measles (Resolved) Mumps (Resolved) Psoriasis (Chronic) Tinnitus (Chronic) Vertigo (Chronic) Physical Therapy Inpatient Evaluation/Re-Eval M1 PT/OT-IP Prior Functional Status Start: 02/04/19 11:16 Freq: NEEDED Status: Active Protocol: Document 02/04/19 09:11 AB (Rec: 02/04/19 11:24 AB [id number]) Medical Review Prior Functional Status Medical History Reviewed Yes Communication able to make needs known Mobility and Gait pt stated that she is independent with all mobilities and ambulation without AD Social History Household Members spouse Living Arrangements House Number of Floors (Floors) One Floor Number of Stairs To Enter/Railing? 1 step to enter but also has a ramp Home Environment High Toilet,Tub/Shower,Built- In Shower Seat Home Equipment Front Wheel Walker,Four Wheel Walker,Quad Cane,Straight Cane Employment Status Retired Additional Social History Comment has a 3WW M2 PT-IP Current Condition Start: 02/04/19 11:16 Freq: NEEDED Status: Active Protocol: Document 02/04/19 09:11 AB (Rec: 02/04/19 11:24 AB [email or web address]) Physical Therapy Current Condition Current Condition Evaluation Date 02/04/19 Treatment Diagnosis s/p R TKA; difficulty in walking Onset Date 02/03/19 Weight Bearing Status Weight Bearing Status Weight Bear as Tolerated M3 PT-IP Subjective Start: 02/04/19 11:16 Freq: NEEDED Status: Active Protocol: Document 02/04/19 09:11 AB (Rec: 02/04/19 11:24 AB [email or web address]) Subjective Physical Therapy Visit Type Type Initial Evaluation Visit Start Time 09:11 Visit Stop Time 09:39 Total Visit Minutes 28 Number of PROGRAM OFFICER Visits 0 Physical Therapy Visit Comments Patient Comments pt agreeable to do PT Therapy Pain Assessment Pain Present Pain Present Denied Pain M4 PT-IP Mobility and Gait Start: 02/04/19 11:16 Freq: NEEDED Status: Active Protocol: Document 02/04/19 09:11 AB (Rec: 02/04/19 11:24 AB [id number]) PT-Bed Mobility Assessment Supine to Sit Supine to Sit Standby Assistance Scooting Scooting to Edge of Bed Standby Assistance PT-Transfer Assessment Sit to and From Stand Sit to and from Stand Standby Assistance Equipment Transfer Assistive Device Gait Belt,Front Wheeled Walker Orthotic/Prosthetic Devices or Brace: No Transfers Transfer Destination Chair Transfer Technique Stand Step Pivot Transfer Ability Level of Assist Standby Assistance Gait Assessment Gait Gait Assistance Required: Standby Assistance Distance (Feet) 125 Able to Maintain Weight Bearing Status Yes During Gait Assistive Devices Assistive Device Gait Belt,Front Wheeled Walker Orthotic/Prosthetic Devices or Brace: No Gait Deviations General Gait Pattern Antalgic,Decreased Stride Length,Decreased Feet Clearance Factors Limiting Gait Function Factors Limiting Gait Function Decreased Activity Tolerance, Decreased Strength,Limited Range of Motion,Poor Balance Comments Gait Comments pt presents with antalgic gait with increase R knee flexion during standing and stance phase of gait Stair Climbing Assessment Evaluation Level of Assist On Stairs Standby Assistance,1 Person Assistance Devices Stair Climbing Assistive Devices Front Wheel Walker Technique/Endurance Stair Climbing Direction Ascend and Descend Stair Climbing Technique Step to Step Number of Steps Climbed 1 Query Text: Stair Climbing Set # Repetitions (reps) 2 PT-Balance Assessment Sitting Balance and Reactions Static Sitting Balance Ability Good Dynamic Sitting Balance Ability Good Standing Balance and Reactions Static Standing Balance Ability Fair Dynamic Standing Balance Ability Fair Device Used FWW M5 PT-IP Objective Assessments Start: 02/04/19 11:16 Freq: NEEDED Status: Active Protocol: Document 02/04/19 09:11 AB (Rec: 02/04/19 11:24 AB [email or web address]) Orientation Orientation/Cognition Level of Alertness Alert Orientation Name,Age,Birthday,Month,Date, Year,Day of Week,Place, Situation Language Function Ability Hard of Hearing Safety Awareness Understands Safety Issues Memory Description No Deficits Noted Gross Range of Motion Lower Extremity ROM Assessment Within Functional Limits Strength Lower Extremity Strength Assessment Right Impaired Knee 4-/5 Coordination Assessment Gross Coordination Gross Coordination WNL Sensation Assessment Sensation Gross Sensation WNL Muscle Tone Muscle Tone WNL Yes M6 PT-IP Treatment Start: 02/04/19 11:16 Freq: NEEDED Status: Active Protocol: Document 02/04/19 09:11 AB (Rec: 02/04/19 11:24 AB [email or web address]) Physical Therapy Treatment Exercises Exercises Quad Sets,Heel Slides Education Education Provided Precautions,Weight Bearing Status,Post-Op Packet,Safety M7 PT-IP Assessment and Plan Start: 02/04/19 11:16 Freq: NEEDED Status: Active Protocol: Document 02/04/19 09:11 AB (Rec: 02/04/19 11:24 AB [email or web address]) PT Summary Assessment and Plan Potential Rehabilitation Potential Good Status of Condition at Evaluation Stable Summary Impairments Pain,ROM,Strength,Balance,Bed Mobility,Transfers,Gait, Activity Tolerance Assessment Summary pt is doing well with mobility and plans to go home today with spouse to assist her. pt requiring SBA with mobility using FWW. pt may go home when medically stable. Goals Bed Mobility Goal Independent Transfer Goal Independent,Crutches Gait Goal Independent,Front Wheel Walker Gait Distance 200 Other Goals up/down 1 step SBA using FWW Days to Meet Goals 3 Frequency of Treatment Frequency Of Treatment Twice a Day Treatment Plan Physical Therapy Treatment Plan Bed Mobility Training,Transfer Training,Gait Training, Therapeutic Exercise,Balance Retraining,Post Op Education, Discharge Planning,Hot or Cold Pack,Neuromuscular Re-ed, Coordination Retraining,Manual Therapy Recommendations To Nursing Amount of Assist Needed Independent Discharge Recommendations PT Discharge Recommendations Home with Assistance, Outpatient PT
--- NOTE | 2019-02-04 10:03 | CM.DANOTE ---
DCP: Case received, EMR reviewed and met with patient. Introduced self and role. Was able to converse with patient and obtain baseline health information. DCP template/assessment completed with information currently available. Patient is a 78 year old female who admitted yesterday afternoon to the care of the orthopedic team. PCP: Dr. Billingsley. Payer: confirmed: [employer]. Patient came to the hospital for a surgical procedure. She had right total knee arthroplasty. Patient has had history of chronic knee pain. Patient stated, has been going on for about 14 years. Met with patient in her room. Pleasant, alert and oriented. She resides here in [place] with her spouse, Al. Patient mentioned that she has two stairs in her home, and has a rail available. She also has a daughter named Miracle, that will also be a resource. She is working with physical therapy today. P: Patient is to be discharged home today, after she is cleared with the physical therapy team. Renate Zaman RN/Adult Health Clinical Nurse Specialist
== END 2019-02-04 11:05 | disposition home or self-care (01) | DRG 470 ==
PROVIDERS: Admitting Provider Orthopaedic Surgery; PCP Family Medicine; Visit Provider Orthopaedic Surgery
PROC: 0SRC0JZ Replacement of Right Knee Joint with Synthetic Substitute, Open Approach (ICD-10-PCS; CPT 27447; principal; 2019-02-03 14:45)
DX: M17.11 Unilateral primary osteoarthritis, right knee (principal); I10 Essential (primary) hypertension; Z87.891 Personal history of nicotine dependence
CPT/HCPCS: 36415; 73560; 85014; 85018; 97161; C1776; C9290; J0690; J1100; J2250; J2405; J2704; J3010

== ENCOUNTER → 2019-05-03 08:38 | Outpatient (CLI) | payer OTHER, SELFPAY ==
[2019-02-03 17:50] VITALS: BMI 29.7
[2019-05-03 09:08] LABS: Add Manual Diff / Slide Review NO; Basophils Absolute Auto 0 /uL (0-100); Basophils Percent Auto 0.6 % (0-2); Eosinophils Absolute Auto 200 /uL (0-450); Eosinophils Percent Auto 2.9 % (2-4); Hematocrit 42.3 % (36-46); Lymphocytes Absolute Auto 1500 /uL (1100-4500); Lymphocytes Percent Auto 22.9 % (25-40); Mean Corpuscular Hemoglobin 29.8 PG (26-34); Mean Corpuscular Volume 90.3 fL (80-100); Monocytes Absolute Auto 500 /uL (0-900); Monocytes Percent Auto 8.2 % (3-14); Neutrophils Absolute Auto 4400 /uL (1500-7000); Neutrophils Percent Auto 65.4 % (50-75); Platelet Count 277 X10^3/uL (150-400); Red Blood Cell Count 4.69 X10^6/uL (4.0-5.2); White Blood Cell Count 6.7 X10^3/uL (4.5-11.0)
[2019-05-03 09:37] LABS: Alanine Aminotransferase 20 IU/L (<35); Albumin 4.1 g/dL (3.5-5.0); Albumin Globulin Ratio 1.3 (1.0-2.8); Alkaline Phosphatase 108 U/L (38-126); Aspartate Aminotransferase 28 IU/L (14-36); BUN Creatinine Ratio 21.7 (6-22); Bilirubin Total 0.7 mg/dL (0.2-1.3); Blood Urea Nitrogen 13 mg/dL (7-17); Calcium 9.1 mg/dL (8.4-10.2); Carbon Dioxide 28 mmol/L (22-32); Chloride 104 mmol/L (98-107); Cholesterol 130 mg/dL (140-199); Estimated Glomerular Filt Rate > 60.0 mL/min (>60); Globulin 3.2 g/dL (1.7-4.1); Glucose 155 mg/dL (80-110); HDL Cholesterol 57 mg/dL (40-60); HEMOLYSIS < 15 (0-50); LDL Cholesterol Calculated 54 mg/dL (<100); Potassium 4.9 mmol/L (3.4-5.1); Sodium 139 mmol/L (137-145); Total Protein 7.3 g/dL (6.3-8.2); Triglycerides 96 mg/dL (35-150)
[2019-05-03 09:59] LABS: Thyroid Stimulating Hormone 1.91 uIU/mL (0.47-4.68)
== END ==
PROVIDERS: PCP Family Medicine; Visit Provider Family Medicine
DX: E03.9 Hypothyroidism, unspecified (principal); E78.2 Mixed hyperlipidemia; I10 Essential (primary) hypertension
CPT/HCPCS: 36415; 80053; 80061; 84443; 85025

== ENCOUNTER → 2019-05-17 08:55 | Outpatient (CLI) | payer OTHER, SELFPAY ==
[2019-02-03 17:50] VITALS: BMI 29.7
[2019-05-17 09:44] LABS: Hemoglobin A1C% w Est Avg Glu 6.8 % (4.0-6.0)
[2019-05-17 09:53] LABS: BUN Creatinine Ratio 18.6 (6-22); Blood Urea Nitrogen 13 mg/dL (7-17); Calcium 9.6 mg/dL (8.4-10.2); Carbon Dioxide 30 mmol/L (22-32); Chloride 102 mmol/L (98-107); Estimated Glomerular Filt Rate > 60.0 mL/min (>60); Glucose 153 mg/dL (80-110); HEMOLYSIS < 15 (0-50); Potassium 4.9 mmol/L (3.4-5.1); Sodium 140 mmol/L (137-145)
== END ==
PROVIDERS: PCP Family Medicine; Visit Provider Family Medicine
DX: R73.9 Hyperglycemia, unspecified (principal)
CPT/HCPCS: 36415; 80048; 83036

== ENCOUNTER → 2019-07-28 14:35 | Outpatient (CLI) | payer OTHER, SELFPAY ==
[2019-02-03 17:50] VITALS: BMI 29.7
[2019-07-28 15:44] LABS: Hemoglobin A1C% w Est Avg Glu 6.5 % (4.0-6.0)
== END ==
PROVIDERS: PCP Family Medicine; Referring Provider Family Medicine; Visit Provider Family Medicine
DX: R73.09 Other abnormal glucose (principal)
CPT/HCPCS: 36415; 83036

== ENCOUNTER → 2019-11-24 10:58 | Outpatient (CLI) | payer OTHER, SELFPAY ==
[2019-02-03 17:50] VITALS: BMI 29.7
--- NOTE | 2019-11-24 | DI.MG.S_ITS ---
BILATERAL DIGITAL SCREENING MAMMOGRAM 3D/2D WITH CAD: 11/24/2019 CLINICAL: Routine screening. Comparison is made to exams dated: 10/28/2018 mammogram, 10/20/2017 mammogram, and 10/01/2016 mammogram - [facility]. There are scattered fibroglandular elements in both breasts. Current study was also evaluated with a Computer Aided Detection (CAD) system. There are benign calcifications in both breasts. No significant masses, calcifications, or other findings are seen in either breast. There has been no significant interval change. IMPRESSION: There is no mammographic evidence of malignancy. A 1 year screening mammogram is recommended. This exam was interpreted at Station ID: [id number]. NOTE: For mammograms, a report in lay terms will be sent to the patient. Approximately 15% of breast malignancies will not be visualized mammographically. In the management of a palpable breast mass, a negative mammogram must not discourage biopsy of a clinically suspicious lesion. Electronically Signed By: Sourav landrum/marcus:11/25/2019 07:56:13 letter sent: Normal Exam ACR BI-RADS Category 2: Benign Finding(s) 3342F
== END ==
PROVIDERS: PCP Family Medicine; Referring Provider Family Medicine; Visit Provider Family Medicine
DX: Z12.31 Encounter for screening mammogram for malignant neoplasm of breast (principal)
CPT/HCPCS: 77063; 77067

== ENCOUNTER → 2020-04-13 07:45 | Outpatient (CLI) | payer OTHER, SELFPAY ==
[2019-02-03 17:50] VITALS: BMI 29.7
[2020-04-13 10:34] LABS: Thyroid Stimulating Hormone 2.64 uIU/mL (0.47-4.68)
== END ==
PROVIDERS: PCP Family Medicine; Referring Provider Family Medicine; Visit Provider Family Medicine
DX: E03.9 Hypothyroidism, unspecified (principal)
CPT/HCPCS: 36415; 84443

== ENCOUNTER → 2020-08-11 11:58 | Outpatient (CLI) | payer MEDICARE, SELFPAY ==
[2019-02-03 17:50] VITALS: BMI 29.7
[2020-08-11] MEDS: COVID-19 VACC, Ad26(JANSSEN)/PF 0.5 ML IM (12:07)
== END ==
PROVIDERS: PCP Family Medicine; Visit Provider Internal Medicine
DX: Z23 Encounter for immunization (principal)
CPT/HCPCS: 0031A; 91303

== ENCOUNTER → 2020-10-03 07:29 | Outpatient (CLI) | payer MEDICARE, SELFPAY ==
[2019-02-03 17:50] VITALS: BMI 29.7
[2020-10-03 08:16] LABS: Add Manual Diff / Slide Review NO; Basophils Absolute Auto 100 /uL (0-100); Basophils Percent Auto 0.9 % (0-2); Eosinophils Absolute Auto 100 /uL (0-450); Eosinophils Percent Auto 1.9 % (2-4); Hematocrit 44.7 % (36-46); Hemoglobin 15.2 g/dL (12.0-16.0); Lymphocytes Absolute Auto 1600 /uL (1100-4500); Lymphocytes Percent Auto 27.9 % (25-40); Mean Corpuscular HGB Conc 33.9 % (30-36); Mean Corpuscular Hemoglobin 32.4 PG (26-34); Mean Corpuscular Volume 95.3 fL (80-100); Monocytes Absolute Auto 600 /uL (0-900); Monocytes Percent Auto 10.7 % (3-14); Neutrophils Absolute Auto 3400 /uL (1500-7000); Neutrophils Percent Auto 58.6 % (50-75); Platelet Count 187 X10^3/uL (150-400); Red Blood Cell Count 4.69 X10^6/uL (4.0-5.2); Red Cell Distribution Width 12.5 % (11.6-14.8); White Blood Cell Count 5.8 X10^3/uL (4.5-11.0)
[2020-10-03 08:31] LABS: Hemoglobin A1C% w Est Avg Glu 6.1 % (4.0-6.0)
[2020-10-03 09:02] LABS: Alanine Aminotransferase 31 IU/L (<35); Albumin 4.2 g/dL (3.5-5.0); Albumin Globulin Ratio 1.4 (1.0-2.8); Alkaline Phosphatase 81 U/L (38-126); Aspartate Aminotransferase 41 IU/L (14-36); BUN Creatinine Ratio 20.3 (6-22); Bilirubin Total 1.3 mg/dL (0.2-1.3); Blood Urea Nitrogen 14 mg/dL (7-17); Calcium 9.5 mg/dL (8.4-10.2); Carbon Dioxide 28 mmol/L (22-32); Chloride 104 mmol/L (98-107); Cholesterol 150 mg/dL (140-199); Estimated Glomerular Filt Rate > 60.0 mL/min (>60); Globulin 3.1 g/dL (1.7-4.1); Glucose 143 mg/dL (80-110); HDL Cholesterol 87 mg/dL (40-60); HEMOLYSIS 19 (0-50); LDL Cholesterol Calculated 45 mg/dL (<100); Potassium 4.8 mmol/L (3.4-5.1); Sodium 138 mmol/L (137-145); Total Protein 7.3 g/dL (6.3-8.2); Triglycerides 89 mg/dL (35-150)
[2020-10-03 09:31] LABS: Thyroid Stimulating Hormone 3.57 uIU/mL (0.47-4.68)
== END ==
PROVIDERS: PCP Family Medicine; Referring Provider Family Medicine; Visit Provider Family Medicine
DX: E03.9 Hypothyroidism, unspecified (principal); R73.9 Hyperglycemia, unspecified; I10 Essential (primary) hypertension; E78.2 Mixed hyperlipidemia
CPT/HCPCS: 36415; 80053; 80061; 83036; 84443; 85025

== ENCOUNTER → 2020-11-27 14:34 | Outpatient (CLI) | payer MEDICARE, SELFPAY ==
[2019-02-03 17:50] VITALS: BMI 29.7
--- NOTE | 2020-11-27 14:36 | DI.MG.S_ITS ---
BILATERAL DIGITAL SCREENING MAMMOGRAM 3D/2D WITH CAD: 11/27/2020 CLINICAL: Routine screening. Comparison is made to exams dated: 11/24/2019 mammogram, 10/28/2018 mammogram, and 10/20/2017 mammogram - [facility]. There are scattered fibroglandular elements in both breasts. Current study was also evaluated with a Computer Aided Detection (CAD) system. There are benign calcifications in both breasts. No significant masses, calcifications, or other findings are seen in either breast. There has been no significant interval change. IMPRESSION: BENIGN There is no mammographic evidence of malignancy. A 1 year screening mammogram is recommended. This exam was interpreted at Station ID: [id number]. NOTE: For mammograms, a report in lay terms will be sent to the patient. Approximately 15% of breast malignancies will not be visualized mammographically. In the management of a palpable breast mass, a negative mammogram must not discourage biopsy of a clinically suspicious lesion. Electronically Signed By: Fernandez Garcia M.D., jr/marcus:11/27/2020 15:47:14 letter sent: Normal Exam ACR BI-RADS Category 2: Benign Finding(s) 3342F
== END ==
PROVIDERS: PCP Family Medicine; Referring Provider Family Medicine; Visit Provider Family Medicine
DX: Z12.31 Encounter for screening mammogram for malignant neoplasm of breast (principal); M85.851 Other specified disorders of bone density and structure, right thigh; Z78.0 Asymptomatic menopausal state; E07.9 Disorder of thyroid, unspecified
CPT/HCPCS: 77063; 77067; 77080

== ENCOUNTER → 2021-05-07 07:55 | Outpatient (CLI) | payer MEDICARE, SELFPAY ==
[2019-02-03 17:50] VITALS: BMI 29.7
[2021-05-07 11:11] LABS: Alanine Aminotransferase 30 IU/L (<35); Albumin 4.1 g/dL (3.5-5.0); Albumin Globulin Ratio 1.6 (1.0-2.8); Alkaline Phosphatase 57 U/L (38-126); Aspartate Aminotransferase 34 IU/L (14-36); BUN Creatinine Ratio 21.5 (6-22); Blood Urea Nitrogen 17 mg/dL (7-17); Calcium 9.3 mg/dL (8.4-10.2); Carbon Dioxide 29 mmol/L (22-32); Chloride 103 mmol/L (98-107); Estimated Glomerular Filt Rate > 60.0 mL/min (>60); Globulin 2.6 g/dL (1.7-4.1); Glucose 128 mg/dL (80-110); HEMOLYSIS < 15 (0-50); Potassium 4.5 mmol/L (3.4-5.1); Sodium 139 mmol/L (137-145); Total Protein 6.7 g/dL (6.3-8.2)
== END ==
PROVIDERS: PCP Family Medicine; Referring Provider Family Medicine; Visit Provider Family Medicine
DX: I10 Essential (primary) hypertension (principal); E03.9 Hypothyroidism, unspecified; E78.2 Mixed hyperlipidemia; R00.0 Tachycardia, unspecified; R73.9 Hyperglycemia, unspecified
CPT/HCPCS: 36415; 80053; 83036

== ENCOUNTER → 2021-12-05 09:30 | Outpatient (CLI) | payer MEDICARE, SELFPAY ==
[2019-02-03 17:50] VITALS: BMI 29.7
--- NOTE | 2021-12-05 09:32 | DI.MG.S_ITS ---
BILATERAL DIGITAL SCREENING MAMMOGRAM 3D/2D WITH CAD: 12/05/2021 CLINICAL: Routine screening. Comparison is made to exams dated: 11/27/2020 mammogram, 11/24/2019 mammogram, and 10/28/2018 mammogram - [facility]. There are scattered fibroglandular elements in both breasts. Current study was also evaluated with a Computer Aided Detection (CAD) system. There are benign calcifications in both breasts. No significant masses, calcifications, or other findings are seen in either breast. There has been no significant interval change. IMPRESSION: BENIGN There is no mammographic evidence of malignancy. A 1 year screening mammogram is recommended. Based on the Tyrer Cuzick model (a risk assessment model) the patient's lifetime risk is 1.9% and her 10 year risk is 0.0%. According to the ACR, ACS, and NCCN guidelines, an annual breast MRI exam along with mammogram is recommended if the patient's lifetime risk is 20% or greater. This exam was interpreted at Station ID: [id number]. NOTE: For mammograms, a report in lay terms will be sent to the patient. Approximately 15% of breast malignancies will not be visualized mammographically. In the management of a palpable breast mass, a negative mammogram must not discourage biopsy of a clinically suspicious lesion. Electronically Signed By: Octaviano herbert/marcus:12/05/2021 12:39:49 letter sent: Normal Exam ACR BI-RADS Category 2: Benign Finding(s) 3342F
== END ==
PROVIDERS: PCP Family Medicine; Referring Provider Family Medicine; Visit Provider Family Medicine
DX: Z12.31 Encounter for screening mammogram for malignant neoplasm of breast (principal)
CPT/HCPCS: 77063; 77067

== ENCOUNTER → 2022-01-15 07:25 | Outpatient (CLI) | payer MEDICARE, SELFPAY ==
[2019-02-03 17:50] VITALS: BMI 29.7
[2022-01-15 08:16] LABS: Add Manual Diff / Slide Review NO; Basophils Absolute Auto 0 /uL (0-100); Basophils Percent Auto 0.8 % (0-2); Eosinophils Absolute Auto 100 /uL (0-450); Eosinophils Percent Auto 2.4 % (2-4); Hematocrit 42.7 % (36-46); Hemoglobin 14.6 g/dL (12.0-16.0); Lymphocytes Absolute Auto 1600 /uL (1100-4500); Lymphocytes Percent Auto 26.8 % (25-40); Mean Corpuscular HGB Conc 34.1 % (30-36); Mean Corpuscular Volume 93.9 fL (80-100); Monocytes Absolute Auto 600 /uL (0-900); Monocytes Percent Auto 9.4 % (3-14); Neutrophils Absolute Auto 3600 /uL (1500-7000); Neutrophils Percent Auto 60.6 % (50-75); Platelet Count 171 X10^3/uL (150-400); Red Blood Cell Count 4.55 X10^6/uL (4.0-5.2); Red Cell Distribution Width 12.4 % (11.6-14.8)
[2022-01-15 08:32] LABS: Alanine Aminotransferase 23 IU/L (<35); Albumin 4.1 g/dL (3.5-5.0); Albumin Globulin Ratio 1.5 (1.0-2.8); Alkaline Phosphatase 62 U/L (38-126); Aspartate Aminotransferase 28 IU/L (14-36); Bilirubin Total 1.5 mg/dL (0.2-1.3); Blood Urea Nitrogen 22 mg/dL (7-17); Calcium 8.6 mg/dL (8.4-10.2); Carbon Dioxide 28 mmol/L (22-32); Chloride 105 mmol/L (98-107); Cholesterol 134 mg/dL (140-199); Estimated Glomerular Filt Rate > 60 mL/min (>60); Globulin 2.8 g/dL (1.7-4.1); Glucose 139 mg/dL (80-110); HDL Cholesterol 67 mg/dL (40-60); HEMOLYSIS < 15 (0-50); LDL Cholesterol Calculated 50 mg/dL (<100); Sodium 137 mmol/L (137-145); Total Protein 6.9 g/dL (6.3-8.2); Triglycerides 83 mg/dL (35-150)
[2022-01-15 08:58] LABS: TSH w/ Reflex to FT4 2.35 uIU/mL (0.47-4.68)
== END ==
PROVIDERS: PCP Family Medicine; Referring Provider Family Medicine; Visit Provider Family Medicine
DX: I10 Essential (primary) hypertension (principal); E03.9 Hypothyroidism, unspecified; E78.2 Mixed hyperlipidemia; R73.9 Hyperglycemia, unspecified
CPT/HCPCS: 36415; 80053; 80061; 84443; 85025

== ENCOUNTER → 2022-02-20 07:08 | Outpatient (CLI) | payer MEDICARE, SELFPAY ==
[2019-02-03 17:50] VITALS: BMI 29.7
[2022-02-20 08:46] LABS: Hemoglobin A1C% w Est Avg Glu 6.5 % (4.0-6.0)
[2022-02-20 09:14] LABS: Bilirubin Total 1.9 mg/dL (0.2-1.3)
== END ==
PROVIDERS: PCP Family Medicine; Referring Provider Family Medicine; Visit Provider Family Medicine
DX: R73.9 Hyperglycemia, unspecified (principal); E03.9 Hypothyroidism, unspecified; E78.2 Mixed hyperlipidemia; I10 Essential (primary) hypertension
CPT/HCPCS: 36415; 82247; 82248; 83036

== ENCOUNTER → 2022-04-01 13:51 | Outpatient (CLI) | payer MEDICARE, SELFPAY ==
[2019-02-03 17:50] VITALS: BMI 29.7
[2022-04-01 15:18] LABS: Alanine Aminotransferase 27 IU/L (<35); Albumin 4.2 g/dL (3.5-5.0); Albumin Globulin Ratio 1.3 (1.0-2.8); Alkaline Phosphatase 65 U/L (38-126); Aspartate Aminotransferase 24 IU/L (14-36); BUN Creatinine Ratio 24.6 (6-22); Blood Urea Nitrogen 16 mg/dL (7-17); Calcium 9.2 mg/dL (8.4-10.2); Carbon Dioxide 30 mmol/L (22-32); Chloride 103 mmol/L (98-107); Estimated Glomerular Filt Rate > 60 mL/min (>60); Globulin 3.3 g/dL (1.7-4.1); Glucose 134 mg/dL (80-110); HEMOLYSIS < 15 (0-50); Sodium 138 mmol/L (137-145); Total Protein 7.5 g/dL (6.3-8.2)
[2022-04-01 15:26] LABS: Hemoglobin A1C% w Est Avg Glu 6.3 % (4.0-6.0)
== END ==
PROVIDERS: PCP Family Medicine; Referring Provider Family Medicine; Visit Provider Family Medicine
DX: E11.9 Type 2 diabetes mellitus without complications (principal); E03.9 Hypothyroidism, unspecified; I10 Essential (primary) hypertension; R73.9 Hyperglycemia, unspecified
CPT/HCPCS: 36415; 80053; 83036

== ENCOUNTER → 2022-06-05 08:32 | Outpatient (CLI) | payer MEDICARE, SELFPAY ==
[2019-02-03 17:50] VITALS: BMI 29.7
[2022-06-05 10:45] LABS: Add Manual Diff / Slide Review NO; Basophils Absolute Auto 0 /uL (0-100); Basophils Percent Auto 0.5 % (0-2); Eosinophils Absolute Auto 200 /uL (0-450); Eosinophils Percent Auto 3.5 % (2-4); Hematocrit 45.2 % (36-46); Hemoglobin 14.9 g/dL (12.0-16.0); Lymphocytes Absolute Auto 1600 /uL (1100-4500); Lymphocytes Percent Auto 27.5 % (25-40); Mean Corpuscular HGB Conc 32.9 % (30-36); Mean Corpuscular Hemoglobin 31.2 PG (26-34); Mean Corpuscular Volume 94.9 fL (80-100); Monocytes Absolute Auto 600 /uL (0-900); Monocytes Percent Auto 10.4 % (3-14); Neutrophils Absolute Auto 3400 /uL (1500-7000); Neutrophils Percent Auto 58.1 % (50-75); Platelet Count 185 X10^3/uL (150-400); Red Blood Cell Count 4.76 X10^6/uL (4.0-5.2); Red Cell Distribution Width 12.5 % (11.6-14.8); White Blood Cell Count 5.8 X10^3/uL (4.5-11.0)
[2022-06-05 12:07] LABS: Alanine Aminotransferase 31 IU/L (<35); Albumin 4.2 g/dL (3.5-5.0); Albumin Globulin Ratio 1.5 (1.0-2.8); Alkaline Phosphatase 75 U/L (38-126); Aspartate Aminotransferase 29 IU/L (14-36); BUN Creatinine Ratio 23.1 (6-22); Bilirubin Total 1.7 mg/dL (0.2-1.3); Blood Urea Nitrogen 15 mg/dL (7-17); Calcium 8.8 mg/dL (8.4-10.2); Carbon Dioxide 28 mmol/L (22-32); Chloride 102 mmol/L (98-107); Cholesterol 154 mg/dL (140-199); Estimated Glomerular Filt Rate > 60 mL/min (>60); Globulin 2.8 g/dL (1.7-4.1); Glucose 127 mg/dL (80-110); HDL Cholesterol 71 mg/dL (40-60); HEMOLYSIS < 15 (0-50); LDL Cholesterol Calculated 59 mg/dL (<100); Potassium 4.9 mmol/L (3.4-5.1); Sodium 138 mmol/L (137-145); Triglycerides 118 mg/dL (35-150)
== END ==
PROVIDERS: PCP Family Medicine; Referring Provider Family Medicine; Visit Provider Family Medicine
DX: E03.9 Hypothyroidism, unspecified (principal); E78.2 Mixed hyperlipidemia; I10 Essential (primary) hypertension; R00.0 Tachycardia, unspecified; R73.9 Hyperglycemia, unspecified; K57.30 Diverticulosis of large intestine without perforation or abscess without bleeding
CPT/HCPCS: 36415; 80053; 80061; 84443; 85025

== ENCOUNTER → 2022-08-01 06:59 | Outpatient (CLI) | payer MEDICARE, SELFPAY ==
[2019-02-03 17:50] VITALS: BMI 29.7
[2022-08-01 08:33] LABS: Hemoglobin A1C% w Est Avg Glu 6.5 % (4.0-6.0)
== END ==
PROVIDERS: PCP Family Medicine; Referring Provider Family Medicine; Visit Provider Family Medicine
DX: R73.9 Hyperglycemia, unspecified (principal); E03.9 Hypothyroidism, unspecified; I10 Essential (primary) hypertension; E78.2 Mixed hyperlipidemia
CPT/HCPCS: 36415; 83036

== ENCOUNTER → 2022-12-06 11:03 | Outpatient (CLI) | payer MEDICARE, SELFPAY ==
[2019-02-03 17:50] VITALS: BMI 29.7
--- NOTE | 2022-12-06 | DI.MG.S_ITS ---
BILATERAL DIGITAL SCREENING MAMMOGRAM 3D/2D WITH CAD: 12/06/2022 CLINICAL: Routine screening. Comparison is made to exams dated: 12/05/2021 mammogram, 11/27/2020 mammogram, 11/24/2019 mammogram, and 10/28/2018 mammogram - [facility]. There are scattered areas of fibroglandular density in both breasts (category b / 25%-50% glandular tissue). Current study was also evaluated with a Computer Aided Detection (CAD) system. There are benign calcifications in both breasts. No significant masses, calcifications, or other findings are seen in either breast. There has been no significant interval change. IMPRESSION: BENIGN There is no mammographic evidence of malignancy. A 1 year screening mammogram is recommended. Based on the Tyrer Cuzick model (a risk assessment model) the patient's lifetime risk is 1.6% and her 10 year risk is 0.0%. According to the ACR, ACS, and NCCN guidelines, an annual breast MRI exam along with mammogram is recommended if the patient's lifetime risk is 20% or greater. This exam was interpreted at Station ID: [id number]. NOTE: For mammograms, a report in lay terms will be sent to the patient. Approximately 15% of breast malignancies will not be visualized mammographically. In the management of a palpable breast mass, a negative mammogram must not discourage biopsy of a clinically suspicious lesion. Electronically Signed By: Joshua jordan/marcus:12/06/2022 11:58:12 letter sent: Normal Exam ACR BI-RADS Category 2: Benign Finding(s) [id number]
== END ==
PROVIDERS: PCP Family Medicine; Referring Provider Family Medicine; Visit Provider Family Medicine
DX: Z12.31 Encounter for screening mammogram for malignant neoplasm of breast (principal)
CPT/HCPCS: 77063; 77067

== ENCOUNTER → 2022-12-10 06:43 | Outpatient (CLI) | payer MEDICARE, SELFPAY ==
[2019-02-03 17:50] VITALS: BMI 29.7
[2022-12-11 05:30] LABS: Labcorp Hemoglobin (Hb) A1c 6.4 % (4.8-5.6)
== END ==
PROVIDERS: PCP Family Medicine; Referring Provider Family Medicine; Visit Provider Family Medicine
DX: R73.9 Hyperglycemia, unspecified (principal)
CPT/HCPCS: 36415; 83036

== ENCOUNTER → 2023-09-05 07:06 | Outpatient (CLI) | payer MEDICARE, SELFPAY ==
[2019-02-03 17:50] VITALS: BMI 29.7
[2023-09-05 08:01] LABS: Hemoglobin A1C% w Est Avg Glu 6.1 % (4.0-6.0)
[2023-09-05 08:52] LABS: Bilirubin Total 1.4 mg/dL (0.2-1.3)
== END ==
PROVIDERS: PCP Family Medicine; Referring Provider Family Medicine; Visit Provider Family Medicine
DX: R73.9 Hyperglycemia, unspecified (principal); R17 Unspecified jaundice
CPT/HCPCS: 36415; 82247; 82248; 83036

== ENCOUNTER → 2023-12-26 12:28 | Outpatient (CLI) | payer MEDICARE, SELFPAY ==
[2019-02-03 17:50] VITALS: BMI 29.7
--- NOTE | 2023-12-26 | DI.MG.S_ITS ---
BILATERAL DIGITAL SCREENING MAMMOGRAM 3D/2D WITH CAD: 12/26/2023 CLINICAL: Routine screening. Comparison is made to exams dated: 12/06/2022 mammogram, 12/05/2021 mammogram, and 11/27/2020 mammogram - [facility]. There are scattered areas of fibroglandular density in both breasts (category b / 25%-50% glandular tissue). Current study was also evaluated with a Computer Aided Detection (CAD) system. There are benign calcifications in both breasts. No significant masses, calcifications, or other findings are seen in either breast. There has been no significant interval change. IMPRESSION: BENIGN There is no mammographic evidence of malignancy. A 1 year screening mammogram is recommended. Based on the Tyrer Cuzick model (a risk assessment model) the patient's lifetime risk is 0.7% and her 10 year risk is 0.0%. According to the ACR, ACS, and NCCN guidelines, an annual breast MRI exam along with mammogram is recommended if the patient's lifetime risk is 20% or greater. This exam was interpreted at Station ID: [id number]. NOTE: For mammograms, a report in lay terms will be sent to the patient. Approximately 15% of breast malignancies will not be visualized mammographically. In the management of a palpable breast mass, a negative mammogram must not discourage biopsy of a clinically suspicious lesion. Electronically Signed By: Joshua jordan/marcus:12/26/2023 14:20:49 letter sent: Normal Exam ACR BI-RADS Category 2: Benign Finding(s) 3342F
== END ==
PROVIDERS: PCP Family Medicine; Referring Provider Family Medicine; Visit Provider Family Medicine
DX: Z12.31 Encounter for screening mammogram for malignant neoplasm of breast (principal); R92.323 Mammographic fibroglandular density, bilateral breasts
CPT/HCPCS: 77063; 77067

== ENCOUNTER → 2024-02-07 08:37 | Outpatient (CLI) | payer MEDICARE, SELFPAY ==
[2019-02-03 17:50] VITALS: BMI 29.7
[2024-02-07 09:14] LABS: Add Manual Diff / Slide Review NO; Basophils Absolute Auto 0 /uL (0-100); Basophils Percent Auto 0.8 % (0-2); Eosinophils Absolute Auto 100 /uL (0-450); Eosinophils Percent Auto 2.2 % (2-4); Hematocrit 42.6 % (36-46); Hemoglobin 14.7 g/dL (12.0-16.0); Lymphocytes Absolute Auto 1400 /uL (1100-4500); Lymphocytes Percent Auto 23.5 % (25-40); Mean Corpuscular HGB Conc 34.4 % (30-36); Mean Corpuscular Hemoglobin 32.4 PG (26-34); Mean Corpuscular Volume 94.3 fL (80-100); Monocytes Absolute Auto 600 /uL (0-900); Monocytes Percent Auto 10.6 % (3-14); Neutrophils Absolute Auto 3700 /uL (1500-7000); Neutrophils Percent Auto 62.9 % (50-75); Platelet Count 177 X10^3/uL (150-400); Red Blood Cell Count 4.52 X10^6/uL (4.0-5.2); Red Cell Distribution Width 12.3 % (11.6-14.8); White Blood Cell Count 5.9 X10^3/uL (4.5-11.0)
[2024-02-07 09:28] LABS: BUN Creatinine Ratio 26.4 (6-22); Blood Urea Nitrogen 19 mg/dL (7-17); Calcium 8.8 mg/dL (8.4-10.2); Carbon Dioxide 28 mmol/L (22-32); Chloride 102 mmol/L (98-107); Cholesterol 158 mg/dL (140-199); Estimated Glomerular Filt Rate > 60 mL/min (>60); Glucose 140 mg/dL (80-110); HDL Cholesterol 89 mg/dL (40-60); HEMOLYSIS < 15 (0-50); LDL Cholesterol Calculated 46 mg/dL (<100); Potassium 4.3 mmol/L (3.4-5.1); Sodium 133 mmol/L (137-145); Triglycerides 114 mg/dL (35-150)
[2024-02-07 09:32] LABS: Hemoglobin A1C% w Est Avg Glu 6.3 % (4.0-6.0)
[2024-02-07 09:59] LABS: Thyroid Stimulating Hormone 1.98 uIU/mL (0.47-4.68)
== END ==
LOC: LAB 08:38
PROVIDERS: PCP Family Medicine; Referring Provider Family Medicine; Visit Provider Family Medicine
DX: Z00.00 Encounter for general adult medical examination without abnormal findings (principal); E78.2 Mixed hyperlipidemia; R73.9 Hyperglycemia, unspecified; I10 Essential (primary) hypertension; E03.9 Hypothyroidism, unspecified
CPT/HCPCS: 36415; 80048; 80061; 83036; 84443; 85025

== ENCOUNTER → 2024-12-28 09:06 | Outpatient (CLI) | payer MEDICARE, SELFPAY ==
[2019-02-03 17:50] VITALS: BMI 29.7
--- NOTE | 2024-12-28 09:08 | DI.MG.S_ITS ---
MM screening mammo BI: 12/28/2024. BI-RADS: 1 CLINICAL: 84-year old female for bilateral screening mammogram. Tyrer-Cuzick lifetime risk of 1.1%. No personal or first-degree family history of breast cancer. The patient had a prior left breast biopsy. PRIOR EXAMS 12/26/2023, 12/06/2022, 12/05/2021, 11/27/2020. MAMMOGRAPHY TECHNIQUE: 2D and 3D (tomosynthesis) digital mammographic views obtained, with additional images as needed for full coverage. Current study was also evaluated with a Computer Aided Detection (CAD) system. DENSITY C. The breasts are heterogeneously dense, which may obscure small masses. MAMMOGRAPHY FINDINGS Bilateral: No suspicious mass, asymmetry, microcalcification, or other abnormality seen. IMPRESSION: * No evidence of malignancy. RECOMMENDATIONS Bilateral * Annual screening mammography. OVERALL ASSESSMENT CATEGORY BI-RADS-1: Negative. The [employer] recommends annual screening mammography beginning at age 40 for women with average risk of breast cancer. ELECTRONICALLY SIGNED: Mckenna Abad M.D. on 12/28/2024 at 12:45:21 PM PT Interpreting Station ID: [id number]
== END ==
PROVIDERS: PCP Family Medicine; Referring Provider Family Medicine; Visit Provider Family Medicine
DX: Z12.31 Encounter for screening mammogram for malignant neoplasm of breast (principal); R92.333 Mammographic heterogeneous density, bilateral breasts
CPT/HCPCS: 77063; 77067